=== PATIENT | female | born 1965 | race Caucasian/White ===

== ENCOUNTER 2017-08-08 07:14 | Day surgery (SDC) | payer OTHER ==
[~2017-08-08] VITALS: Ht 167.6 cm; Wt 80.0 kg
[~2017-08-08 07:14] MED LIST: ADVA100A INH; ALBU0.63 NEB; AMLO10TA2 PO; DIAZ10TA PO; DULO1CAP PO; ENAL20TA PO; ESTR0.5T PO; FLUN25I EACH NARE; GEMF600T PO; HYDR-3583 PO; LAMO100T PO; LORA1TAB12 PO; MORP1TAB24 PO; PANT40TA3 PO; PRAV20TA2 PO; PROM12.54 PO; QUET1TAB9 PO; TOPI25TA7 PO; TRAM50TA PO; TRIA37.53 PO; VENTAER INH; ZOLP10TA3 PO
[2017-08-08 07:33] VITALS: BP 157/101; PULSE 87; RESP 20; TEMP 97.7; O2SAT 97
[2017-08-08] MEDS ORDERED: UMEC1AER INH (07:40)
[2017-08-08] MEDS ORDERED: FENT12DI T-DERMAL (07:40)
[2017-08-08] MEDS ORDERED: ADVA100A INH (07:40)
[2017-08-08] MEDS ORDERED: diphenhydrAMINE HCL 50 MG CAP PO ONE (08:15)
[2017-08-08] MEDS ORDERED: DIAZEPAM 5 MG TAB PO SCH (08:15)
[2017-08-08 08:27] LABS: AUTOMATED NEUTROPHIL # 6.9 TH/MM3 (1.8-7.7); BASOPHIL % 0.3 % (0.0-2.0); HEMATOCRIT 38.1 % (35.0-46.0); HEMOGLOBIN 12.9 GM/DL (11.6-15.3); LYMPH % 18.4 % (9.0-44.0); LYMPHOCYTE # 1.6 TH/MM3 (1.0-4.8); MEAN CORPUSCULAR HEMOGLOBIN 29.8 PG (27.0-34.0); MEAN CORPUSCULAR HGB CONC 33.9 % (32.0-36.0); MONO % 2.4 % (0.0-8.0); MONOCYTE # 0.2 TH/MM3 (0-0.9); NEUT % 78.9 % (16.0-70.0); PLATELET COUNT 267 TH/MM3 (150-450); RED BLOOD COUNT 4.33 MIL/MM3 (4.00-5.30); RED CELL DISTRIBUTION WIDTH 15.7 % (11.6-17.2); WHITE BLOOD COUNT 8.7 TH/MM3 (4.0-11.0)
[2017-08-08] MEDS ORDERED: LACTATED RINGER'S 1000 ML INJ 1,000 ML IV SCH ×2 (08:30→09:13)
[2017-08-08 08:39] LABS: PROTHROMBIN TIME - PATIENT 10.3 SEC (9.8-11.6)
[2017-08-08 08:47] LABS: BICARBONATE 28.5 MEQ/L (21.0-32.0); CALCIUM 9.7 MG/DL (8.5-10.1); CREATININE 1.16 MG/DL (0.50-1.00)
[2017-08-08] MEDS ORDERED: IOHEXOL 180 MG/ML 20 ML VIAL (for RAD DIAG) IT ONE (09:05)
--- NOTE | 2017-08-08 09:14 | PD.RAD ---
Post Procedure Progress Note Pre Procedure Diagnosis: (1) Lumbar radiculopathy Post Procedure Diagnosis: (1) Lumbar radiculopathy Procedure Date: Aug 08, 2017 Supervising Radiologist: Stephan Mclean Proceduralist/Assist: Milena Nelson, RT(R)(), Dominic Keys RT(R) Anesthesia: Local Plan of Activity Patient to Unit: ROPU Patient Condition: Good See PACS Report for procedural detail/treatment Stephan Mclean MD Aug 08, 2017 09:14
--- NOTE | 2017-08-08 09:55 | RADRPT ---
EXAM DATE/TIME: 08/08/2017 08:28 [facility] COMPARISON: No previous studies available for comparison. INDICATIONS : Patient with a history of lumbar disc prolapse with radiculopathy. MEDICAL HISTORY : Stroke Aneurysm Uterine cancer Chest pain SURGICAL HISTORY : Lumbar fusion Neck surgery Stents in brain ENCOUNTER: Initial ACUITY: > 1 year PAIN SCORE: 7/10 LOCATION: Lower back LUMBAR PUNCTURE TIME: 0905 hours FLUORO TIME: 0.4 minutes IMAGE SERIES: 2 CONTRAST: 20 cc Omnipaque (iohexol) 180 ACCESS LEVEL: L3-4 Patient was premedicated per protocol for underlying contrast media allergy. PROCEDURE : 1. Fluoroscopic guided lumbar puncture. 2. Lumbar myelogram. The risks, benefits and alternatives to the procedure were explained and verbal and written consent w as obtained. The site was prepped in sterile fashion. Full sterile technique was used, including ca p, mask, sterile gloves and gown and a large sterile sheet. Hand hygiene and 2% chlorhexidine and/or betadine/alcohol prep was utilized per protocol for cutaneous antisepsis. The skin and subcutaneous tissues were infiltrated with local anesthetic solution. With fluoroscopic guidance the lumbar thecal sac was punctured at level above and a diagnostic quanti ty of contrast is present in the subarachnoid space. Radiographs were obtained of the lumbar spine. The patient tolerated procedure well and there were no complications. CT scan is to be performed for further evaluation. CONCLUSION: Uncomplicated lumbar myelogram as above. CT scan is to be performed for further evaluation. Stephan Mclean MD on August 08, 2017 at 9:51 Board Certified Radiologist. This report was verified electronically.
[2017-08-08 10:10] VITALS: BP 156/87; PULSE 84; TEMP 98.3; O2SAT 94
--- NOTE | 2017-08-08 10:17 | RADRPT ---
EXAM DATE/TIME: 08/08/2017 09:47 [facility] COMPARISON: No previous studies available for comparison. INDICATIONS : Lumbar radiculopathy. Post myelogram. RADIATION DOSE: 38.79 CTDIvol (mGy) CT of thelumbar spine was performed post myelogram. MEDICAL HISTORY : Stroke. Aneurysm, intracranial. Cardiovascular diseaseUterine cancer. Hypertension. SURGICAL HISTORY : Hysterectomy. section.Fusion, lumbar.Aneurysm coil. Lumbar surgeries. ENCOUNTER: Initial ACUITY: 1 day PAIN SCALE: 8/10 LOCATION: TECHNIQUE: Volumetric scanning of the lumbar spine was performed. Multiplanar reconstructions in the sagittal, coronal and oblique axial planes were performed. Using automated exposure control and adjustment of the mA and/or kV according to patient size, radiation dose was kept as low as reasonably achievable t o obtain optimal diagnostic quality images. DICOM format image data is available electronically for review and comparison. FINDINGS: VERTEBRAE: Normal vertebral body height. Patient is status post previous lumbar spine surgery with fusion at L5- S1. There are some degenerative changes involving the lumbar vertebral bodies. Contrast is seen withi n the spinal canal. No significant extra dural defects are seen at T11-T12. There is some mild facet arthritis on the left side at T11-T12. ALIGNMENT: No evidence of subluxation. T12-L1: The thecal sac has a normal diameter. No evidence of disc bulge or protrusion. The neural foramina are patent bilaterally. L1-L2: The thecal sac has a normal diameter. No evidence of disc bulge or protrusion. The neural foramina are patent bilaterally. L2-L3: Mild broad-based bulging. The neural foramina are patent bilaterally. Mild facet arthritis. L3-L4: The thecal sac has a normal diameter. No evidence of disc bulge or protrusion. The neural foramina are patent bilaterally. L4-L5: The thecal sac has a normal diameter. No evidence of disc bulge or protrusion. The neural foramina are patent bilaterally. There is mild bilateral facet arthritis. There are bilateral screws in the ky dy of L5. L5-S1: The thecal sac has a normal diameter. No evidence of disc bulge or protrusion. The neural foramina are patent bilaterally. There are bilateral screws in the body of L5 and S1. CONCLUSION: 1. Mild broad-based bulging at L2-3. 2. Status post lumbar spinal fusion at L5-S1. There is good alignment of the lumbar spine and fusion. The hardware is grossly intact. 3. Mild degenerative changes involving the lumbar spine. Chirag Madrid MD on August 08, 2017 at 10:09 Board Certified Radiologist. This report was verified electronically.
[2017-08-08] MEDS ORDERED: ACETAMINOPHEN/HYDROcodone 325 MG/10 MG TAB PO ONE (10:45)
[2017-08-08 13:00] VITALS: BP 148/87; PULSE 88; TEMP 98.3; O2SAT 98
== END 2017-08-08 13:35 | disposition home or self-care (01) ==
LOC: HROP 07:14 → HRIP 07:17 → HROP 13:35
PROVIDERS: ATTEND Neurological Surgery
DX: M51.16 Intervertebral disc disorders with radiculopathy, lumbar region (principal); I10 Essential (primary) hypertension; J45.909 Unspecified asthma, uncomplicated; Z85.42 Personal history of malignant neoplasm of other parts of uterus; Z86.73 Personal history of transient ischemic attack (TIA), and cerebral infarction without residual deficits; Z98.1 Arthrodesis status
CPT/HCPCS: 62304; 72131; 80048; 85025; 85610; 85730; J7120; Q0163; Q9965